=== PATIENT | female | born 1970 | race American Indian/Alaskan Native ===

== ENCOUNTER 2016-12-30 13:56 | Inpatient (IN) | payer MEDICARE ==
[2016-12-30] MEDS ORDERED: TYLENOL PO PRN ×2 (14:39→21:25)
[2016-12-30] MEDS ORDERED: MILK OF MAGNESIA PO PRN (14:39)
[2016-12-30] MEDS ORDERED: ZOFRAN IV PRN ×2 (14:39→21:25)
[2016-12-30] MEDS ORDERED: DULCOLAX PR PRN ×2 (14:39→21:25)
--- NOTE | 2016-12-30 14:49 | Consultation ---
History of Present Illness Reason for consult: dyspnea, cough, asthma, other (pleuritic chest pain) History of present illness: This is a patient with hx of asthma who recently had back surgery in September and was sent to rehab and flew back home in November. She began having chest pain on rt associated with spasm. She was seen in the office and started on cefdinir which she had an allergic reaction to with facial swelling. She was then treated with zpak with some but not significant improvement. She reports that the pain is now pleuritic and associated with spasm. She was ambulated in office and had evidence of wheezing and desaturation to 88 %. She recd a neb treatment with some but not signif improvement Past History Past Medical History: arthritis, other (asthma, chronic pain) Past Surgical History: Other (back surgery) Medications and Allergies Allergies Allergy/AdvReac Type Severity Reaction Status Date / Time Penicillins Allergy Hives Unverified 12/04/13 09:58 cefdinir AdvReac Unknown Verified 12/30/16 14:00 Active Meds: Active Medications Acetaminophen (Tylenol) 650 mg PO Q4H PRN PRN Reason: Pain MILD(1-3)/Fever >100.5/RICK Acetaminophen/Hydrocodone Bitart ([place] 5/325) 1 each PO Q6H PRN PRN Reason: Pain, Moderate (4-6) Albuterol (Proventil) 2.5 mg IH Q6HRT PRN PRN Reason: Bronchospasm Arformoterol Tartrate (Brovana Nebu) 15 mcg IH Q12HRT RICKEY Bisacodyl (Dulcolax) 10 mg ID QDAY PRN PRN Reason: Constipation unrelieved by MOM Budesonide (Pulmicort) 0.25 mg IH ONCE ONE Stop: 12/30/16 14:37 Budesonide (Pulmicort) 0.5 mg IH Q12HRT RICKEY Docusate Sodium (Colace) 100 mg PO BID RICKEY Fluticasone Propionate (Flonase) 100 mcg NS ONCE ONE Stop: 12/30/16 14:47 Heparin Sodium (Porcine) (Heparin) 5,000 unit SUB-Q Q8HR RICKEY Levofloxacin/Dextrose (Levaquin 500mg/100ml) 500 mg in 100 mls @ 100 mls/hr IV Q24HR RICKEY PRN Reason: Protocol Sodium Chloride (Nacl 0.9% 1000 Ml) 1,000 mls @ 75 mls/hr IV DIRECT RICKEY Magnesium Hydroxide (Milk Of Magnesia) 30 ml PO Q4H PRN PRN Reason: Constipation Methylprednisolone Sodium Succinate (Solu-Medrol) 40 mg IV Q6HR RICKEY Ondansetron HCl (Zofran) 4 mg IV Q8H PRN PRN Reason: N/V unrelieved by Reglan Pantoprazole Sodium (Protonix) 40 mg PO ONCE ONE Stop: 12/30/16 14:30 Physical Examination Vital signs: vital signs 130/70, 106, 28 99.0 General appearance: other (mild distress) ENT: oropharynx moist, other (no stridor) Neck: supple, no lymphadenopathy Effort: mildly labored Ascultation: Bilateral: wheezes Percussion: Bilateral: not dull Tactile fremitus: Bilateral: normal Cardiovascular: regular rate and rhythm Gastrointestinal: normoactive bowel sounds, soft, non-tender, non-distended Integumentary: normal Extremities: no cyanosis, edema (mild in LE) Musculoskeletal: no deformities Gait: normal gait, normal posture normal mental status, non-focal exam mood appropriate, affect normal Assessment and Plan - Patient Problems (1) Acute respiratory failure with hypoxemia Status: Acute (2) Pleuritic chest pain Status: Acute (3) Asthma exacerbation Status: Acute (4) Acute bronchitis Status: Acute Qualifiers: Bronchitis organism: B (5) Shortness of breath Status: Acute (6) Wheezing Status: Acute
[2016-12-30] MEDS ORDERED: PROVENTIL IH PRN (20:00)
[2016-12-30 21:04] LABS: Basophils % (Auto) 0.2 % (0.0-1.8); Eosinophils % (Auto) 0.3 % (0.0-4.3); Hematocrit 37.8 % (30.3-42.9); Hemoglobin 12.2 gm/dl (10.1-14.3); Mean Corpuscular HGB Conc 32 % (30-34); Mean Corpuscular Hemoglobin 31 pg (28-32); Mean Corpuscular Volume 95 fl (79-97); Platelet Count 324 K/mm3 (140-440); Red Blood Count 3.99 M/mm3 (3.65-5.03); Red Cell Distribution Width 14.7 % (13.2-15.2); White Blood Count 11.7 K/mm3 (4.5-11.0)
[2016-12-30 21:10] LABS: Alanine Aminotransferase 15 units/L (7-56); Albumin 3.8 g/dL (3.9-5); Albumin/Globulin Ratio 1.1 %; Alkaline Phosphatase 66 units/L (35-129); Anion Gap 21 mmol/L; BUN/Creatinine Ratio 17.14; Bilirubin,Total < 0.20 mg/dL (0.1-1.2); Blood Urea Nitrogen 12 mg/dL (7-17); Carbon Dioxide 20 mmol/L (22-30); Chloride 103.7 mmol/L (98-107); Glucose 114 mg/dL (65-100); Potassium 3.4 mmol/L (3.6-5.0); Sodium 141 mmol/L (137-145); Total Protein 7.2 g/dL (6.3-8.2)
[2016-12-30 21:15] LABS: INR 1.06 (0.87-1.13)
--- NOTE | 2016-12-30 21:25 | History and Physical Report ---
History of Present Illness Date of examination: 12/30/16 Date of admission: 12/30/16 20:12 Chief complaint: Increasing SOB for 10 days History of present illness: 46 year old AAF with HX of Asthma not responding to Outpatient treatment.Sent from Dr Carr's office as a direct admit .Also to rule out PE bcoz of recent travel and chest pain rt side.Patient was desaturating on walking in Dr Carr' s office.No fever or chills.Cough productive of mucoid sputum. Past History Past Medical History: arthritis, other (asthma, chronic pain) Past Surgical History: Other (back surgery) Social history: no significant social history, lives with family Family history: hypertension Medications and Allergies Allergies Allergy/AdvReac Type Severity Reaction Status Date / Time Penicillins Allergy Hives Unverified 12/04/13 09:58 cefdinir AdvReac Unknown Verified 12/30/16 14:00 Home Medications Medication Instructions Recorded Confirmed Last Taken Type Percocet 5/325 mg 2 PO Q4-6H PRN 12/31/16 Unknown History Robaxin TAB 750 PO Q12HR 12/31/16 Unknown History Active Meds: Active Medications Acetaminophen (Tylenol) 650 mg PO Q4H PRN PRN Reason: Pain MILD(1-3)/Fever >100.5/RICK Acetaminophen/Hydrocodone Bitart ([place] 5/325) 1 each PO Q6H PRN PRN Reason: Pain, Moderate (4-6) Albuterol (Proventil) 2.5 mg IH Q6HRT PRN PRN Reason: Bronchospasm Arformoterol Tartrate (Brovana Nebu) 15 mcg IH Q12HRT RICKEY Bisacodyl (Dulcolax) 10 mg UT QDAY PRN PRN Reason: Constipation unrelieved by MOM Budesonide (Pulmicort) 0.25 mg IH ONCE ONE Stop: 12/30/16 14:37 Budesonide (Pulmicort) 0.5 mg IH Q12HRT RICKEY Docusate Sodium (Colace) 100 mg PO BID RICKEY Fluticasone Propionate (Flonase) 100 mcg NS ONCE ONE Stop: 12/30/16 14:47 Heparin Sodium (Porcine) (Heparin) 5,000 unit SUB-Q Q8HR RICKEY Levofloxacin/Dextrose (Levaquin 500mg/100ml) 500 mg in 100 mls @ 100 mls/hr IV Q24HR RICKEY PRN Reason: Protocol Sodium Chloride (Nacl 0.9% 1000 Ml) 1,000 mls @ 75 mls/hr IV DIRECT RICKEY Magnesium Hydroxide (Milk Of Magnesia) 30 ml PO Q4H PRN PRN Reason: Constipation Methylprednisolone Sodium Succinate (Solu-Medrol) 40 mg IV Q6HR RICKEY Ondansetron HCl (Zofran) 4 mg IV Q8H PRN PRN Reason: N/V unrelieved by Reglan Pantoprazole Sodium (Protonix) 40 mg PO ONCE ONE Stop: 12/30/16 14:30 Review of Systems All systems: negative Constitutional: no weight loss, no weight gain, no fever, no chills, no sweats, no night sweats Ears, nose, mouth and throat: no sore throat, no swelling in mouth, no swelling in throat, no odynophagia Breasts: deferred Cardiovascular: no chest pain, no orthopnea, no palpitations, no rapid/ irregular heart beat, no edema, no syncope Respiratory: cough, cough with sputum, shortness of breath, dyspnea on exertion , congestion Gastrointestinal: no abdominal pain, no nausea, no vomiting, no diarrhea, no constipation, no change in bowel habits, no hematemesis, no coffee ground emesis Musculoskeletal: no neck stiffness, no neck pain, no shooting arm pain, no arm numbness/tingling, no low back pain, no shooting leg pain, no leg numbness/ tingling, no redness of joints Integumentary: no rash, no pruritis, no redness, no sores, no wounds, no jaundice, no boils, no blisters Neurological: no tingling, no seizures, no syncope Psychiatric: no anxiety, no memory loss, no change in sleep habits, no sleep disturbances, no insomnia, no hypersomnia, no change in appetite, no change in libido Endocrine: no polyphagia, no excessive thirst, no polydipsia, no polyuria, no nocturia Hematologic/Lymphatic: no easy bruising, no easy bleeding Allergic/Immunologic: no urticaria, no allergic rhinitis Exam - Constitutional General appearance: Present: no acute distress, well-nourished - EENT Eyes: Present: PERRL ENT: hearing intact, clear oral mucosa - Neck Neck: Present: supple, normal ROM - Respiratory Respiratory effort: normal Respiratory: bilateral: diminished, rhonchi - Cardiovascular Heart rate: 80 Rhythm: regular Heart Sounds: Present: S1 & S2. Absent: rub, click - Extremities Extremities: no ischemia, pulses intact, pulses symmetrical, No edema Peripheral Pulses: within normal limits - Abdominal General gastrointestinal: Present: soft, non-tender, non-distended, normal bowel sounds Female genitourinary: Present: normal - Integumentary Integumentary: Present: clear, warm, dry - Musculoskeletal Musculoskeletal: gait normal, strength equal bilaterally - Psychiatric Psychiatric: appropriate mood/affect, intact judgment & insight - Neurologic Neurologic: CNII-XII intact, moves all extremities Results - Labs CBC & Chem 7: 12/30/16 20:38 12/31/16 06:04 Labs: Laboratory Last Values WBC 11.7 K/mm3 (4.5-11.0) H 12/30/16 20:38 RBC 3.99 M/mm3 (3.65-5.03) 12/30/16 20:38 Hgb 12.2 gm/dl (10.1-14.3) 12/30/16 20:38 Hct 37.8 % (30.3-42.9) 12/30/16 20:38 MCV 95 fl (79-97) 12/30/16 20:38 MCH 31 pg (28-32) 12/30/16 20:38 MCHC 32 % (30-34) 12/30/16 20:38 RDW 14.7 % (13.2-15.2) 12/30/16 20:38 Plt Count 324 K/mm3 (140-440) 12/30/16 20:38 Lymph % (Auto) 35.9 % (13.4-35.0) H 12/30/16 20:38 [place] % (Auto) 8.7 % (0.0-7.3) H 12/30/16 20:38 Eos % (Auto) 0.3 % (0.0-4.3) 12/30/16 20:38 Baso % (Auto) 0.2 % (0.0-1.8) 12/30/16 20:38 Lymph # 4.2 K/mm3 (1.2-5.4) 12/30/16 20:38 [place] # 1.0 K/mm3 (0.0-0.8) H 12/30/16 20:38 Eos # 0.0 K/mm3 (0.0-0.4) 12/30/16 20:38 Baso # 0.0 K/mm3 (0.0-0.1) 12/30/16 20:38 Seg Neutrophils % 54.9 % (40.0-70.0) 12/30/16 20:38 Seg Neutrophils # 6.4 K/mm3 (1.8-7.7) 12/30/16 20:38 PT 13.7 Sec. (12.2-14.9) 12/30/16 20:44 INR 1.06 (0.87-1.13) 12/30/16 20:44 APTT 23.0 Sec. (24.2-36.6) L 12/30/16 20:44 Sodium 141 mmol/L (137-145) 12/30/16 20:45 Potassium 3.4 mmol/L (3.6-5.0) L 12/30/16 20:45 Chloride 103.7 mmol/L (98-107) 12/30/16 20:45 Carbon Dioxide 20 mmol/L (22-30) L 12/30/16 20:45 Anion Gap 21 mmol/L 12/30/16 20:45 BUN 12 mg/dL (7-17) 12/30/16 20:45 Creatinine 0.7 mg/dL (0.7-1.2) 12/30/16 20:45 Estimated GFR > 60 ml/min 12/30/16 20:45 BUN/Creatinine Ratio 17.14 % 12/30/16 20:45 Glucose 114 mg/dL (65-100) H 12/30/16 20:45 Calcium 9.0 mg/dL (8.4-10.2) 12/30/16 20:45 Total Bilirubin < 0.20 mg/dL (0.1-1.2) 12/30/16 20:45 AST 11 units/L (5-40) 12/30/16 20:45 ALT 15 units/L (7-56) 12/30/16 20:45 Alkaline Phosphatase 66 units/L (35-129) 12/30/16 20:45 Total Protein 7.2 g/dL (6.3-8.2) 12/30/16 20:45 Albumin 3.8 g/dL (3.9-5) L 12/30/16 20:45 Albumin/Globulin Ratio 1.1 % 12/30/16 20:45 - Imaging and Cardiology Chest x-ray: report reviewed CT scan - abdomen: report reviewed Assessment and Plan Advance Directives: Yes (full code) Plan of care discussed with patient/family: Yes - Patient Problems (1) Acute respiratory failure with hypoxemia Current Visit: Yes Status: Acute Plan to address problem: Neb Tx iv Solumedrol and Iv abx (2) Asthma exacerbation Current Visit: Yes Status: Acute Plan to address problem: Same as above Pulmonary ebolism is a considertion b/c of recent surgery and travel Check CTA (3) Arthritis Current Visit: Yes Status: Chronic (4) Low back pain associated with a spinal disorder other than radiculopathy or spinal stenosis Current Visit: Yes Status: Chronic Plan to address problem: Patient had recent back surgery and requesting for Pain medications (5) DVT prophylaxis Current Visit: Yes Status: Acute Plan to address problem: On Lovenox 40 mg SQ qd
[2016-12-30] MEDS: BROVANA NEBU IH SCH (21:35)
[2016-12-30] MEDS: PULMICORT IH SCH (21:36)
[2016-12-30] MEDS ORDERED: PROTONIX PO ONE (22:00)
[2016-12-30] MEDS ORDERED: ELAVIL PO SCH (22:00)
[2016-12-30] MEDS ORDERED: PULMICORT IH ONE (23:00)
[2016-12-30] MEDS ORDERED: FLONASE NS ONE (23:00)
[2016-12-30] MEDS: NACL 0.9% 1000 ML 1,000 ML IV SCH (23:17)
[2016-12-30] MEDS: LEVAQUIN 500MG/100ML 500 MG/100 ML BAG IV SCH (23:17)
[2016-12-30] MEDS: COLACE PO SCH (23:18)
[2016-12-30] MEDS: NORCO 5/325 PO PRN (23:18)
[2016-12-30] MEDS: HEPARIN SUB-Q SCH (23:19)
[2016-12-31] MEDS: MORPHINE IV PRN ×4 (01:51→21:49)
[2016-12-31] MEDS: HEPARIN SUB-Q SCH (06:27)
[2016-12-31 07:14] LABS: Anion Gap 18 mmol/L; BUN/Creatinine Ratio 18.33; Blood Urea Nitrogen 11 mg/dL (7-17); Calcium 8.7 mg/dL (8.4-10.2); Carbon Dioxide 21 mmol/L (22-30); Glucose 160 mg/dL (65-100); Potassium 4.4 mmol/L (3.6-5.0); Sodium 139 mmol/L (137-145)
[2016-12-31] MEDS: BROVANA NEBU IH SCH ×2 (08:22→20:14)
[2016-12-31] MEDS: PULMICORT IH SCH ×2 (08:22→20:14)
--- NOTE | 2016-12-31 09:19 | XRay Report ---
Single view chest: History: Asthma exacerbation. Findings: Normal cardiomediastinal silhouette. Trachea is midline. As specificity is left perihilar area. Normal CP angles. Impression: Opacity left perihilar area probably suggestive of pneumonitis.
--- NOTE | 2016-12-31 11:20 | Progress Note ---
Assessment and Plan Dyspnea. Appear to be in part related to prior history of asthma. Currently on further workup for thrombotic event with no prior history of malignancy or thrombotic events reported by patient Left lung pneumonia. This per chest x-ray report on admission. Hypoxemia. Secondary to the above Obstructive sleep apnea. CPAP at bedside complaints last night. Back pain. History recent spine surgery Obesity Recommendations Chest CTA Continue oxygen support if oxygen desaturations noted below 90% Continue antibiotics for pneumonia Subjective Date of service: 12/31/16 Principal diagnosis: dyspnea, asthma exacerbation, hypoxemia, recent back surgery Interval history: Complaints of coughing and sore throat and some throat congestion. Also persists with back pain needing pain medications. She denies hemoptysis episodes. Currently no chest pain. No fever or chills reported. She is about to be moved to chest CTA this morning Objective Vital Signs - 12hr 12/30/16 12/31/16 12/31/16 23:18 00:45 01:51 Temperature Pulse Rate 86 Pulse Rate [ Anterior Bilateral Throughout] Respiratory 20 20 20 Rate Respiratory Rate [Anterior Bilateral Throughout] Blood Pressure O2 Sat by Pulse 100 Oximetry 12/31/16 12/31/16 12/31/16 02:21 07:57 08:20 Temperature 97.8 F Pulse Rate 64 Pulse Rate [ 64 Anterior Bilateral Throughout] Respiratory 18 22 Rate Respiratory 18 Rate [Anterior Bilateral Throughout] Blood Pressure 110/80 O2 Sat by Pulse 99 Oximetry 12/31/16 08:30 Temperature Pulse Rate Pulse Rate [ 65 Anterior Bilateral Throughout] Respiratory Rate Respiratory 18 Rate [Anterior Bilateral Throughout] Blood Pressure O2 Sat by Pulse Oximetry Constitutional: no acute distress, alert, appears uncomfortable ENT: oropharynx moist, other (no stridor) Neck: supple, no lymphadenopathy Effort: mildly labored Ascultation: Bilateral: clear, diminished breath sounds, rhonchi (sporadic) Percussion: Bilateral: not dull Tactile fremitus: Bilateral: normal Cardiovascular: regular rate and rhythm Gastrointestinal: normoactive bowel sounds, soft, non-tender, non-distended Integumentary: normal Extremities: no cyanosis Neurologic: normal mental status, non-focal exam Psychiatric: mood appropriate, affect normal CBC and BMP: 12/30/16 20:38 12/31/16 06:04 ABG, PT/INR, D-dimer: PT/INR, D-dimer PT 13.7 Sec. (12.2-14.9) 12/30/16 20:44 INR 1.06 (0.87-1.13) 12/30/16 20:44 Abnormal lab findings: Abnormal Labs 12/30/16 12/30/16 12/30/16 20:38 20:44 20:45 WBC 11.7 H Lymph % (Auto) 35.9 H [place] % (Auto) 8.7 H [place] # 1.0 H APTT 23.0 L Potassium 3.4 L Carbon Dioxide 20 L Creatinine Glucose 114 H POC Glucose Albumin 3.8 L 12/31/16 12/31/16 12/31/16 02:03 05:11 06:04 WBC Lymph % (Auto) [place] % (Auto) [place] # APTT Potassium Carbon Dioxide 21 L Creatinine 0.6 L Glucose 160 H POC Glucose 138 H 156 H Albumin
[2016-12-31] MEDS ORDERED: NACL ONE (12:20)
--- NOTE | 2016-12-31 13:19 | Cat Scan Report ---
CTA chest: History: Pleuritic chest pain. Findings: No evidence of aneurysm. Filling defects are identified at the distal right main pulmonary artery and adjacent branches. There is filling defect noted at the distal left pulmonary artery near the branches. There is 3.9 x 2.5 cm mass in the left lower lobe without air bronchogram/maybe calcified partially. Appears to be pleural-based. There is left calcified hilar mass probably related adenopathy. Faint pleural-based infiltrates right lower lobe. Impression: Pulmonary embolism as detailed above. Left lung mass with left hilar adenopathy. Additional findings as detailed above. Nurse Bunny HERNANDEZ was informed of the findings at 1:10 PM on 12/31/16. Pedro Luis
[2016-12-31] MEDS: HEPARIN/ 0.45% NACL-25,000 UNIT/500 ML 25,000 UNIT/500 ML BAG IV SCH (13:56)
[2016-12-31 14:20] LABS: Hemoglobin 12.8 gm/dl (10.1-14.3)
[2016-12-31 14:32] LABS: INR 1.08 (0.87-1.13); Partial Thromboplastin Time 24.8 Sec. (24.2-36.6)
[2016-12-31] MEDS: COLACE PO SCH ×2 (15:09→21:49)
[2016-12-31] MEDS: NACL 0.9% 1000 ML 1,000 ML IV SCH (16:59)
[2016-12-31] MEDS: LEVAQUIN 500MG/100ML 500 MG/100 ML BAG IV SCH (16:59)
[2017-01-01] MEDS: MORPHINE IV PRN ×3 (06:53→22:31)
[2017-01-01] MEDS: HEPARIN/ 0.45% NACL-25,000 UNIT/500 ML 25,000 UNIT/500 ML BAG IV SCH (07:07)
[2017-01-01] MEDS: NACL 0.9% 1000 ML 1,000 ML IV SCH (07:08)
--- NOTE | 2017-01-01 07:15 | Progress Note ---
Assessment and Plan Bilateral PE - started on iv heparin drip - will start on oral anticoagulation if no active bleeding in next 24h left LL lung mass - will follow pulmonary recommendation Acute respiratory failure with hypoxemia likely from acute PE and exacerbation of asthma Neb Tx iv Solumedrol and breathing tx Asthma exacerbation - cont periodic nebulizer breathing treatment along with O2 Low back pain associated with a spinal disorder other than radiculopathy or spinal stenosis Patient had recent back surgery will manage with as needed pain medication DVT prophylaxis On heparin drip Subjective Date of service: 12/31/16 Principal diagnosis: dyspnea, asthma exacerbation, hypoxemia, recent back surgery Interval history: Patient seen and examined. Medical records and medication list reviewed. No acute event overnight noted by the RN. Patient complains of pleuritic chest pain and difficulty breathing. Patient is tolerating diet. CTA chest suggestive of bilateral pulmonary embolism and left lower lobe calcified pleural-based mass Discussed plan of care at bedside with patient. Objective - Exam Narrative Exam: GENERAL: well-developed and well-nourished -Filipino female lying on bed appeared to be in no discomfort. HEENT: Normocephalic. Atraumatic. No conjunctival congestion or icterus. Patient has moist mucous membranes. NECK: Supple. Trachea midline. CHEST/LUNGS: breathing nonlabored. No wheezes crackles or rhonchi. HEART/CARDIOVASCULAR: Regular in rate and rhythm. S1 and S2 positive. ABDOMEN: Abdomen is soft, nontender. Patient has normal bowel sounds. SKIN: There is no rash. Warm and dry. NEURO: No focal motor deficit. Follows command. MUSCULOSKELETAL: No joint effusion or tenderness. EXTRIMITY: No edema, no cyanosis or clubbing. PSYCH: Cooperative. - Constitutional Vitals: Vital Signs - 12hr 12/31/16 12/31/16 12/31/16 20:05 20:17 20:21 Temperature Pulse Rate Pulse Rate [ 77 83 Anterior Bilateral Throughout] Respiratory Rate Respiratory 16 18 Rate [Anterior Bilateral Throughout] Blood Pressure O2 Sat by Pulse 95 Oximetry 12/31/16 12/31/16 12/31/16 21:49 22:19 23:25 Temperature 99.5 F Pulse Rate 73 Pulse Rate [ Anterior Bilateral Throughout] Respiratory 18 17 20 Rate Respiratory Rate [Anterior Bilateral Throughout] Blood Pressure 108/58 O2 Sat by Pulse 99 Oximetry 01/01/17 01/01/17 00:45 06:53 Temperature Pulse Rate 65 Pulse Rate [ Anterior Bilateral Throughout] Respiratory 18 18 Rate Respiratory Rate [Anterior Bilateral Throughout] Blood Pressure O2 Sat by Pulse 93 Oximetry - Labs CBC & Chem 7: 12/31/16 13:43 12/31/16 06:04 Labs: Abnormal lab results 12/31/16 12/31/16 12/31/16 Range/Units 06:04 12:27 16:21 Heparin Anti-Xa Level (0.3-0.7) U.I./ml Carbon Dioxide 21 L (22-30) mmol/L Creatinine 0.6 L (0.7-1.2) mg/dL Glucose 160 H (65-100) mg/dL POC Glucose 140 H 166 H (70-105) 12/31/16 12/31/16 01/01/17 Range/Units 20:09 21:57 05:47 Heparin Anti-Xa Level 1.45 H (0.3-0.7) U.I./ml Carbon Dioxide (22-30) mmol/L Creatinine (0.7-1.2) mg/dL Glucose (65-100) mg/dL POC Glucose 118 H 146 H (70-105)
[2017-01-01] MEDS: PULMICORT IH SCH ×2 (09:37→20:10)
[2017-01-01] MEDS: BROVANA NEBU IH SCH ×2 (09:37→20:09)
[2017-01-01] MEDS: MILK OF MAGNESIA PO PRN ×2 (11:02→22:40)
[2017-01-01] MEDS: COLACE PO SCH ×2 (11:02→22:30)
--- NOTE | 2017-01-01 12:56 | Progress Note ---
Assessment and Plan PE. On hepain IV. Lung mass. See CT report . Will need further evaluation. Reports prior hx/o SPN? ?? Left lung pneumonia. Obstructive sleep apnea. CPAP at bedside complaints last night. Back pain. History recent spine surgery. No neurological changes Obesity Recommendations Continue standard anticoagulation,optimize INR Neurological monitoring Continue antibiotics for pneumonia Will need either TTNA or bronc later on, once anticoagulation stabilized Discussed with pt in detail all questions answered.No family at bedside Subjective Date of service: 01/01/17 Principal diagnosis: dyspnea, asthma exacerbation, hypoxemia, recent back surgery Interval history: Some cough and SOB.Anxious about clot issue.No bleeding or hemoptysis Objective Vital Signs - 12hr 01/01/17 01/01/17 01/01/17 06:53 07:23 08:00 Temperature 97.5 F L Pulse Rate 61 Pulse Rate [ Anterior Bilateral Throughout] Respiratory 18 17 22 Rate Respiratory Rate [Anterior Bilateral Throughout] Blood Pressure 128/82 O2 Sat by Pulse 98 Oximetry 01/01/17 01/01/17 09:37 09:47 Temperature Pulse Rate Pulse Rate [ 69 80 Anterior Bilateral Throughout] Respiratory Rate Respiratory 18 20 Rate [Anterior Bilateral Throughout] Blood Pressure O2 Sat by Pulse 99 Oximetry Constitutional: no acute distress, alert, appears uncomfortable ENT: oropharynx moist Neck: supple, no lymphadenopathy Effort: mildly labored Ascultation: Bilateral: clear Percussion: Bilateral: not dull Tactile fremitus: Bilateral: normal Cardiovascular: regular rate and rhythm Gastrointestinal: normoactive bowel sounds, soft, non-tender, non-distended Integumentary: normal Extremities: no cyanosis Neurologic: normal mental status, non-focal exam Psychiatric: mood appropriate, affect normal CBC and BMP: 12/31/16 13:43 12/31/16 06:04 ABG, PT/INR, D-dimer: PT/INR, D-dimer PT 13.9 Sec. (12.2-14.9) 12/31/16 13:43 INR 1.08 (0.87-1.13) 12/31/16 13:43 Abnormal lab findings: Abnormal Labs 12/30/16 12/30/16 12/30/16 20:38 20:44 20:45 WBC 11.7 H Lymph % (Auto) 35.9 H [place] % (Auto) 8.7 H [place] # 1.0 H APTT 23.0 L Heparin Anti-Xa Level Potassium 3.4 L Carbon Dioxide 20 L Creatinine Glucose 114 H POC Glucose Albumin 3.8 L 12/31/16 12/31/16 12/31/16 02:03 05:11 06:04 WBC Lymph % (Auto) [place] % (Auto) [place] # APTT Heparin Anti-Xa Level Potassium Carbon Dioxide 21 L Creatinine 0.6 L Glucose 160 H POC Glucose 138 H 156 H Albumin 12/31/16 12/31/16 12/31/16 12:27 16:21 20:09 WBC Lymph % (Auto) [place] % (Auto) [place] # APTT Heparin Anti-Xa Level 1.45 H Potassium Carbon Dioxide Creatinine Glucose POC Glucose 140 H 166 H Albumin 12/31/16 01/01/17 01/01/17 21:57 05:47 06:39 WBC Lymph % (Auto) [place] % (Auto) [place] # APTT Heparin Anti-Xa Level 1.19 H Potassium Carbon Dioxide Creatinine Glucose POC Glucose 118 H 146 H Albumin 01/01/17 12:06 WBC Lymph % (Auto) [place] % (Auto) [place] # APTT Heparin Anti-Xa Level Potassium Carbon Dioxide Creatinine Glucose POC Glucose 181 H Albumin
--- NOTE | 2017-01-01 13:27 | Progress Note ---
Assessment and Plan Bilateral PE - cont on iv heparin drip - will start on oral anticoagulation after possible lung biopsy for lung mass left LL lung mass - will follow pulmonary recommendation about biopsy planning Acute respiratory failure with hypoxemia likely from acute PE and exacerbation of asthma Neb Tx iv Solumedrol and breathing tx Asthma exacerbation - cont periodic nebulizer breathing treatment along with O2 Low back pain associated with a spinal disorder other than radiculopathy or spinal stenosis Patient had recent back surgery will manage with as needed pain medication DVT prophylaxis On heparin drip Subjective Date of service: 01/01/17 Principal diagnosis: dyspnea, asthma exacerbation, hypoxemia, recent back surgery Interval history: Patient seen and examined. Medical records and medication list reviewed. No acute event overnight noted by the RN. Patient complains of pleuritic chest pain and difficulty breathing. Patient is tolerating diet. CTA chest suggestive of bilateral pulmonary embolism and left lower lobe calcified pleural-based mass Discussed plan of care at bedside with patient. Objective - Exam Narrative Exam: GENERAL: well-developed and well-nourished -Maltese female lying on bed appeared to be in no discomfort. HEENT: Normocephalic. Atraumatic. No conjunctival congestion or icterus. Patient has moist mucous membranes. NECK: Supple. Trachea midline. CHEST/LUNGS: breathing nonlabored. No wheezes crackles or rhonchi. HEART/CARDIOVASCULAR: Regular in rate and rhythm. S1 and S2 positive. ABDOMEN: Abdomen is soft, nontender. Patient has normal bowel sounds. SKIN: There is no rash. Warm and dry. NEURO: No focal motor deficit. Follows command. MUSCULOSKELETAL: No joint effusion or tenderness. EXTRIMITY: No edema, no cyanosis or clubbing. PSYCH: Cooperative. - Constitutional Vitals: Vital Signs - 12hr 01/01/17 01/01/17 01/01/17 06:53 07:23 08:00 Temperature 97.5 F L Pulse Rate 61 Pulse Rate [ Anterior Bilateral Throughout] Respiratory 18 17 22 Rate Respiratory Rate [Anterior Bilateral Throughout] Blood Pressure 128/82 O2 Sat by Pulse 98 Oximetry 01/01/17 01/01/17 09:37 09:47 Temperature Pulse Rate Pulse Rate [ 69 80 Anterior Bilateral Throughout] Respiratory Rate Respiratory 18 20 Rate [Anterior Bilateral Throughout] Blood Pressure O2 Sat by Pulse 99 Oximetry - Labs CBC & Chem 7: 12/31/16 13:43 12/31/16 06:04 Labs: Abnormal lab results 12/31/16 12/31/16 12/31/16 Range/Units 16:21 20:09 21:57 Heparin Anti-Xa Level 1.45 H (0.3-0.7) U.I./ml POC Glucose 166 H 118 H (70-105) 01/01/17 01/01/17 01/01/17 Range/Units 05:47 06:39 12:06 Heparin Anti-Xa Level 1.19 H (0.3-0.7) U.I./ml POC Glucose 146 H 181 H (70-105)
[2017-01-01] MEDS: LEVAQUIN PO SCH (22:30)
--- NOTE | 2017-01-02 01:09 | Admit Criteria Form ---
Admission Criteria Documentation: RESPIRATORY FAILURE GRG Clinical Indications for Admission to Inpatient Care (Place 'X' for any and all applicable criteria): Hospital admission is needed for appropriate care of the patient because of acute respiratory failure or insufficiency as indicated by 1 or more of the following (1)(2)(3)(4)(5)(6)(7)(8 ): [X]I. Mechanical ventilation needed (acute invasive or noninvasive) [ ]II. Severe ventilation deficit as indicated by 1 or more of the following ( 9) [ ]a) Uncompensated Respiratory acidosis (pH < 7.35 and PaCO2 > 40 mmHg (5.3 kPa)) [ ]b) Airflow measurements < 25% of predicted (eg, PEFR < 100 L/min) [ ]c) FVC < 15 mL/kg of ideal body weight, or 50% decrease in vital capacity from baseline [ ]III. Noncardiac pulmonary edema not resolving with rapid emergency treatment (8) [ ]IV. Severe respiratory distress as indicated by 1 or more of the following: [ ]a) Severe tachypnea (respiratory rate greater than 30, greater than 45 for 6-month-old, greater than 60 for ) [ ]b) Severe hypoxemia (partial pressure of oxygen less than 50 mm Hg ( 6.7 kPa) on greater than 50% oxygen or partial pressure of oxygen to FIO2 ratio less than 200) [ ]c) Mental status deterioration from respiratory disease [ ]V. Airway obstruction or inadequate protection [A](10)(11) The original [employer] content created by [employer] has been revised. The portions of the content which have been revised are identified through the use of italic text or in bold, and [employer] has neither reviewed nor approved the modified material. All other unmodified content is copyright [employer]. Please see references footnoted in the original [employer] edition 2017 Admission Criteria Met: Yes
[2017-01-02 02:06] LABS: Hematocrit 35.1 % (30.3-42.9); Hemoglobin 11.4 gm/dl (10.1-14.3); Mean Corpuscular HGB Conc 33 % (30-34); Mean Corpuscular Hemoglobin 31 pg (28-32); Mean Corpuscular Volume 94 fl (79-97); Platelet Count 297 K/mm3 (140-440); Red Blood Count 3.72 M/mm3 (3.65-5.03); Red Cell Distribution Width 14.9 % (13.2-15.2); White Blood Count 20.1 K/mm3 (4.5-11.0)
--- NOTE | 2017-01-02 07:38 | Vascular Lab Report ---
LOWER EXTREMITY VENOUS DUPLEX: REASON FOR EXAM: Swelling of the lower extremities. COMMENTS ON THE RIGHT: All veins visualized are freely compressible without evidence of internal echogenicity. Flow is spontaneous and phasic throughout. COMMENTS ON THE LEFT: All veins visualized are freely compressible without evidence of internal echogenicity. Flow is spontaneous and phasic throughout. IMPRESSION: No evidence of acute or chronic deep venous thrombosis in either lower extremity.
[2017-01-02] MEDS: MORPHINE IV PRN ×2 (07:58→13:40)
[2017-01-02 08:13] LABS: Hematocrit 36.1 % (30.3-42.9); Hemoglobin 11.5 gm/dl (10.1-14.3)
[2017-01-02] MEDS: MILK OF MAGNESIA PO PRN (08:13)
[2017-01-02] MEDS: PULMICORT IH SCH ×3 (08:56→21:37)
[2017-01-02] MEDS: BROVANA NEBU IH SCH ×3 (08:56→21:36)
[2017-01-02] MEDS: COLACE PO SCH ×2 (09:41→21:18)
[2017-01-02] MEDS: NACL 0.9% 1000 ML 1,000 ML IV SCH (11:23)
[2017-01-02] MEDS: HEPARIN/ 0.45% NACL-25,000 UNIT/500 ML 25,000 UNIT/500 ML BAG IV SCH (11:27)
--- NOTE | 2017-01-02 13:56 | Progress Note ---
Assessment and Plan 46 y/o female with PE and left lower lobe mass 1. Will review office records. Per patient has had biopsy in the past. Do not know results. 2. Would continue IV heparin until I can review records. may need biopsy prior to discharge 3. Consider decreasing pain meds 4. Continue IV steroids, will halve dose tomorrow 5. Consider stopping abx therapy. Subjective Date of service: 01/02/17 Principal diagnosis: dyspnea, asthma exacerbation, hypoxemia, recent back surgery Interval history: Remains on room air. Stable. States that she does get short of breath with exertion. Currently on Heparin. No family at bedside. Remainder is negative. Objective Vital Signs - 12hr 01/02/17 01/02/17 01/02/17 08:00 10:29 10:32 Temperature 98.3 F Pulse Rate 68 Pulse Rate [ 74 Posterior Bilateral Throughout] Respiratory 18 Rate Respiratory 18 Rate [Posterior Bilateral Throughout] Blood Pressure 102/62 O2 Sat by Pulse 96 100 Oximetry 01/02/17 10:44 Temperature Pulse Rate Pulse Rate [ 72 Posterior Bilateral Throughout] Respiratory Rate Respiratory 18 Rate [Posterior Bilateral Throughout] Blood Pressure O2 Sat by Pulse Oximetry Constitutional: no acute distress, alert, appears uncomfortable ENT: oropharynx moist Neck: supple, no lymphadenopathy Effort: mildly labored Ascultation: Bilateral: clear, diminished breath sounds Percussion: Bilateral: not dull Tactile fremitus: Bilateral: normal Cardiovascular: regular rate and rhythm Gastrointestinal: normoactive bowel sounds, soft, non-tender, non-distended Integumentary: normal Extremities: no cyanosis Neurologic: normal mental status, non-focal exam Psychiatric: mood appropriate, affect normal CBC and BMP: 01/02/17 07:54 12/31/16 06:04 ABG, PT/INR, D-dimer: PT/INR, D-dimer PT 13.9 Sec. (12.2-14.9) 12/31/16 13:43 INR 1.08 (0.87-1.13) 12/31/16 13:43 Abnormal lab findings: Abnormal Labs 12/30/16 12/30/16 12/30/16 20:38 20:44 20:45 WBC 11.7 H Lymph % (Auto) 35.9 H [place] % (Auto) 8.7 H [place] # 1.0 H APTT 23.0 L Heparin Anti-Xa Level Potassium 3.4 L Carbon Dioxide 20 L Creatinine Glucose 114 H POC Glucose Albumin 3.8 L 12/31/16 12/31/16 12/31/16 02:03 05:11 06:04 WBC Lymph % (Auto) [place] % (Auto) [place] # APTT Heparin Anti-Xa Level Potassium Carbon Dioxide 21 L Creatinine 0.6 L Glucose 160 H POC Glucose 138 H 156 H Albumin 12/31/16 12/31/16 12/31/16 12:27 16:21 20:09 WBC Lymph % (Auto) [place] % (Auto) [place] # APTT Heparin Anti-Xa Level 1.45 H Potassium Carbon Dioxide Creatinine Glucose POC Glucose 140 H 166 H Albumin 12/31/16 01/01/17 01/01/17 21:57 05:47 06:39 WBC Lymph % (Auto) [place] % (Auto) [place] # APTT Heparin Anti-Xa Level 1.19 H Potassium Carbon Dioxide Creatinine Glucose POC Glucose 118 H 146 H Albumin 01/01/17 01/01/17 01/01/17 12:06 17:14 21:24 WBC Lymph % (Auto) [place] % (Auto) [place] # APTT Heparin Anti-Xa Level Potassium Carbon Dioxide Creatinine Glucose POC Glucose 181 H 168 H 182 H Albumin 01/02/17 01/02/17 01/02/17 01:20 06:38 12:33 WBC 20.1 H Lymph % (Auto) [place] % (Auto) [place] # APTT Heparin Anti-Xa Level Potassium Carbon Dioxide Creatinine Glucose POC Glucose 144 H 209 H Albumin
[2017-01-02] MEDS ORDERED: MORPHINE IV PRN (17:36)
--- NOTE | 2017-01-02 17:43 | Progress Note ---
Assessment and Plan Bilateral PE - cont on iv heparin drip - will start on oral anticoagulation after possible lung biopsy for lung mass left LL lung mass - will follow pulmonary recommendation about biopsy planning - Per patient has had biopsy in the past but do not know results. - waiting on pt's office record from her rn charge Acute respiratory failure with hypoxemia - likely from acute PE and exacerbation of asthma - Neb Tx iv Solumedrol and breathing tx Asthma exacerbation - cont periodic nebulizer breathing treatment along with O2 Low back pain associated with a spinal disorder other than radiculopathy or spinal stenosis - Patient had recent back surgery - will manage with as needed pain medication Steroid induced hyperglycemia - will reduce the dose of steroid - will place on SSI Leukocytosis - steroid induced - will cont to monitor DVT prophylaxis - On heparin drip Subjective Date of service: 01/02/17 Principal diagnosis: dyspnea, asthma exacerbation, hypoxemia, recent back surgery Interval history: Patient seen and examined. Medical records and medication list reviewed. No acute event overnight noted by the RN. Patient complains of pleuritic chest pain and difficulty breathing, but improving. Patient is tolerating diet. CTA chest suggestive of bilateral pulmonary embolism and left lower lobe calcified pleural-based mass Discussed plan of care at bedside with patient. Objective - Exam Narrative Exam: GENERAL: well-developed and well-nourished -[place] female lying on bed appeared to be in no discomfort. HEENT: Normocephalic. Atraumatic. No conjunctival congestion or icterus. Patient has moist mucous membranes. NECK: Supple. Trachea midline. CHEST/LUNGS: breathing nonlabored. No wheezes crackles or rhonchi. HEART/CARDIOVASCULAR: Regular in rate and rhythm. S1 and S2 positive. ABDOMEN: Abdomen is soft, nontender. Patient has normal bowel sounds. SKIN: There is no rash. Warm and dry. NEURO: No focal motor deficit. Follows command. MUSCULOSKELETAL: No joint effusion or tenderness. EXTRIMITY: No edema, no cyanosis or clubbing. PSYCH: Cooperative. - Constitutional Vitals: Vital Signs - 12hr 01/02/17 01/02/17 01/02/17 08:00 10:29 10:32 Temperature 98.3 F Pulse Rate 68 Pulse Rate [ 74 Posterior Bilateral Throughout] Respiratory 18 Rate Respiratory 18 Rate [Posterior Bilateral Throughout] Blood Pressure 102/62 O2 Sat by Pulse 96 100 Oximetry 01/02/17 01/02/17 10:44 15:51 Temperature 97.9 F Pulse Rate 56 L Pulse Rate [ 72 Posterior Bilateral Throughout] Respiratory 18 Rate Respiratory 18 Rate [Posterior Bilateral Throughout] Blood Pressure 110/68 O2 Sat by Pulse Oximetry - Labs CBC & Chem 7: 01/02/17 07:54 12/31/16 06:04 Labs: Abnormal lab results 01/01/17 01/02/17 01/02/17 Range/Units 21:24 01:20 06:38 WBC 20.1 H (4.5-11.0) K/mm3 POC Glucose 182 H 144 H (70-105) 01/02/17 01/02/17 Range/Units 12:33 16:37 WBC (4.5-11.0) K/mm3 POC Glucose 209 H 223 H (70-105) - Imaging and cardiology CT scan - chest: report reviewed
[2017-01-02] MEDS: NORCO 5/325 PO PRN (21:18)
[2017-01-02] MEDS: LEVAQUIN PO SCH (21:18)
[2017-01-03] MEDS: NACL 0.9% 1000 ML 1,000 ML IV SCH ×2 (01:13→20:32)
[2017-01-03] MEDS ORDERED: MORPHINE IV PRN (06:33)
[2017-01-03 06:54] LABS: Anion Gap 18 mmol/L; Blood Urea Nitrogen 11 mg/dL (7-17); Calcium 8.6 mg/dL (8.4-10.2); Carbon Dioxide 21 mmol/L (22-30); Chloride 106.5 mmol/L (98-107); Glucose 143 mg/dL (65-100); Potassium 4.6 mmol/L (3.6-5.0); Sodium 141 mmol/L (137-145)
[2017-01-03] MEDS: PULMICORT IH SCH ×2 (07:33→21:12)
[2017-01-03] MEDS: BROVANA NEBU IH SCH ×2 (07:33→21:12)
[2017-01-03] MEDS: COLACE PO SCH ×2 (09:21→21:43)
[2017-01-03] MEDS: MILK OF MAGNESIA PO PRN (09:53)
--- NOTE | 2017-01-03 12:27 | Progress Note ---
Assessment and Plan 46 y/o female with PE and left lower lobe mass 1. Reviewed old records and films. Most recent CT prior to several days ago was 14. Does not appear to have changed. Stable. No need for biopsy at this point. Spoke with [facility], would figure out what insurance covers and start patient on oral anticoagulation 2. Continue home medication regimen for asthma at discharge: . 3. Will need steroid taper at discharge. 40x3, 20x3, 10x3 then stop 4. Needs heme consult for hypercoag work up and outpatient follow up to help determine duration of therapy. Subjective Date of service: 01/03/17 Principal diagnosis: dyspnea, asthma exacerbation, hypoxemia, recent back surgery Interval history: Feels better today. Spoke with Dr. Carr on the phone this am and I spoke with her yesterday at the office. Objective Vital Signs - 12hr 01/03/17 01/03/17 01/03/17 00:35 01:20 06:41 Temperature Pulse Rate 56 L 59 L Pulse Rate [ Posterior Bilateral Throughout] Respiratory 18 18 20 Rate Respiratory Rate [Posterior Bilateral Throughout] Blood Pressure O2 Sat by Pulse 98 97 Oximetry 01/03/17 01/03/17 01/03/17 07:35 07:41 08:11 Temperature 98.3 F Pulse Rate 56 L Pulse Rate [ 66 64 Posterior Bilateral Throughout] Respiratory 18 Rate Respiratory 18 18 Rate [Posterior Bilateral Throughout] Blood Pressure 114/72 O2 Sat by Pulse 96 98 Oximetry Constitutional: no acute distress, alert, appears uncomfortable ENT: oropharynx moist Neck: supple, no lymphadenopathy Effort: mildly labored Ascultation: Bilateral: clear, diminished breath sounds Percussion: Bilateral: not dull Tactile fremitus: Bilateral: normal Cardiovascular: regular rate and rhythm Gastrointestinal: normoactive bowel sounds, soft, non-tender, non-distended Integumentary: normal Extremities: no cyanosis Neurologic: normal mental status, non-focal exam Psychiatric: mood appropriate, affect normal CBC and BMP: 01/02/17 07:54 01/03/17 06:09 ABG, PT/INR, D-dimer: PT/INR, D-dimer PT 13.9 Sec. (12.2-14.9) 12/31/16 13:43 INR 1.08 (0.87-1.13) 12/31/16 13:43 Abnormal lab findings: Abnormal Labs 12/30/16 12/30/16 12/30/16 20:38 20:44 20:45 WBC 11.7 H Lymph % (Auto) 35.9 H [place] % (Auto) 8.7 H [place] # 1.0 H APTT 23.0 L Heparin Anti-Xa Level Potassium 3.4 L Carbon Dioxide 20 L Creatinine Glucose 114 H POC Glucose Albumin 3.8 L 12/31/16 12/31/16 12/31/16 02:03 05:11 06:04 WBC Lymph % (Auto) [place] % (Auto) [place] # APTT Heparin Anti-Xa Level Potassium Carbon Dioxide 21 L Creatinine 0.6 L Glucose 160 H POC Glucose 138 H 156 H Albumin 12/31/16 12/31/16 12/31/16 12:27 16:21 20:09 WBC Lymph % (Auto) [place] % (Auto) [place] # APTT Heparin Anti-Xa Level 1.45 H Potassium Carbon Dioxide Creatinine Glucose POC Glucose 140 H 166 H Albumin 12/31/16 01/01/17 01/01/17 21:57 05:47 06:39 WBC Lymph % (Auto) [place] % (Auto) [place] # APTT Heparin Anti-Xa Level 1.19 H Potassium Carbon Dioxide Creatinine Glucose POC Glucose 118 H 146 H Albumin 01/01/17 01/01/17 01/01/17 12:06 17:14 21:24 WBC Lymph % (Auto) [place] % (Auto) [place] # APTT Heparin Anti-Xa Level Potassium Carbon Dioxide Creatinine Glucose POC Glucose 181 H 168 H 182 H Albumin 01/02/17 01/02/17 01/02/17 01:20 06:38 12:33 WBC 20.1 H Lymph % (Auto) [place] % (Auto) [place] # APTT Heparin Anti-Xa Level Potassium Carbon Dioxide Creatinine Glucose POC Glucose 144 H 209 H Albumin 01/02/17 01/02/17 01/03/17 16:37 21:25 05:40 WBC Lymph % (Auto) [place] % (Auto) [place] # APTT Heparin Anti-Xa Level Potassium Carbon Dioxide Creatinine Glucose POC Glucose 223 H 165 H 134 H Albumin 01/03/17 01/03/17 06:09 11:32 WBC Lymph % (Auto) [place] % (Auto) [place] # APTT Heparin Anti-Xa Level Potassium Carbon Dioxide 21 L Creatinine 0.5 L Glucose 143 H POC Glucose 116 H Albumin
--- NOTE | 2017-01-03 13:53 | Query- Pneumonia Documented ---
Dear ___Douglas Date:__01/03/2017 Gate Person/CDS:___Mallorie Phone#:____[phone] Exercise your independent professional judgment when responding to query. Questions asked do not imply a particular answer is desired or expected. We greatly appreciate your clarification on this issue. Clinical Documentation States: 46 Year old female was admitted on 12/30/2016. The Hospitalist H&P note states "46 year old AAF with HX of Asthma not responding to Outpatient treatment.Sent from Dr Carr's office as a direct admit .Also to rule out PE bcoz of recent travel and chest pain rt side.Patient was desaturating on walking in Dr Carr's office.No fever or chills.Cough productive of mucoid sputum." Th IM Progress note on 12/31/2016 states "Will also continue abx for Right LL PNA likely community acquired." Clinical Findings Show: Antibiotics: IV Levaquin. Chest Imaging on 12/30/2016: Opacity left perihilar area probably suggestive of pneumonitis. Please further specify known or suspected Etiology: [ ] Aspiration Pneumonia [ x] Gram Negative Pneumonia , suspected [ ] Gram Positive Pneumonia [ ] Pseudomonas Pneumonia [ ] MRSA - related Pneumonia [ ] Viral Pneumonia [ ] Candidal Pneumonia [ ] Other: [ ] Unable to determine Present on Admission: [ x] Yes (Y) [ ] Clinically undeterminable (W) [ ] No (N) Please also document response in your Progress Notes and/or Discharge Summary and indicate if the condition was present on admission. MTDD
--- NOTE | 2017-01-03 14:04 | Progress Note ---
Assessment and Plan Assessment and plan: Bilateral PE - Continue heparin drip and will change to Eliquis at discharge - Hematology oncology/consulted for hypercoagulable workup and recommendation for the duration of fond cognition left LL lung mass - Patient has a mass on previous imaging, will follow with Dr. Carr as an outpatient - Patient doesn't need biopsy at this time Acute respiratory failure with hypoxemia - likely from acute PE and exacerbation of asthma - Neb Tx iv Solumedrol and breathing tx - We will otoniel steroids Asthma exacerbation - cont periodic nebulizer breathing treatment along with O2 Low back pain associated with a spinal disorder other than radiculopathy or spinal stenosis - Patient had recent back surgery - will d/c morphine and start her on Percocet Steroid induced hyperglycemia - will reduce the dose of steroid - will place on SSI Leukocytosis - steroid induced - will cont to monitor DVT prophylaxis - On heparin drip History Interval history: Patient was seen and evaluated this morning, she is complaining shortness of breath. Vital signs are stable. Hospitalist Physical - Physical exam Narrative exam: Not in cardiopulmonary distress. The patient is obese. Vital signs as documented. Head exam is unremarkable. No scleral icterus . Neck is without jugular venous distension, thyromegaly, or carotid bruits. Lungs are clear to auscultation. Cardiac exam reveals regular rate and Rhythm. First and second heart sounds normal. No murmurs, rubs or gallops. Abdominal exam reveals normal bowel sounds, no masses, no organomegaly and no aortic enlargement. Extremities are nonedematous and both femoral and pedal pulses are normal. ASSOCIATE PRODUCER: Alert and oriented 3. No focal weakness. - Constitutional Vitals: Temp Pulse Resp BP Pulse Ox 98.3 F 56 L 18 114/72 98 01/03/17 08:11 01/03/17 08:11 01/03/17 08:11 01/03/17 08:11 01/03/17 08:11 General appearance: Present: no acute distress, well-nourished Results - Labs CBC & Chem 7: 01/02/17 07:54 01/03/17 06:09 Labs: Laboratory Last Values WBC 20.1 K/mm3 (4.5-11.0) H 01/02/17 01:20 RBC 3.72 M/mm3 (3.65-5.03) 01/02/17 01:20 Hgb 11.5 gm/dl (10.1-14.3) 01/02/17 07:54 Hct 36.1 % (30.3-42.9) 01/02/17 07:54 MCV 94 fl (79-97) 01/02/17 01:20 MCH 31 pg (28-32) 01/02/17 01:20 MCHC 33 % (30-34) 01/02/17 01:20 RDW 14.9 % (13.2-15.2) 01/02/17 01:20 Plt Count 300 K/mm3 (140-440) 01/02/17 07:54 Lymph % (Auto) 35.9 % (13.4-35.0) H 12/30/16 20:38 [place] % (Auto) 8.7 % (0.0-7.3) H 12/30/16 20:38 Eos % (Auto) 0.3 % (0.0-4.3) 12/30/16 20:38 Baso % (Auto) 0.2 % (0.0-1.8) 12/30/16 20:38 Lymph # 4.2 K/mm3 (1.2-5.4) 12/30/16 20:38 [place] # 1.0 K/mm3 (0.0-0.8) H 12/30/16 20:38 Eos # 0.0 K/mm3 (0.0-0.4) 12/30/16 20:38 Baso # 0.0 K/mm3 (0.0-0.1) 12/30/16 20:38 Seg Neutrophils % 54.9 % (40.0-70.0) 12/30/16 20:38 Seg Neutrophils # 6.4 K/mm3 (1.8-7.7) 12/30/16 20:38 PT 13.9 Sec. (12.2-14.9) 12/31/16 13:43 INR 1.08 (0.87-1.13) 12/31/16 13:43 APTT 24.8 Sec. (24.2-36.6) 12/31/16 13:43 Heparin Anti-Xa Level 0.62 U.I./ml (0.3-0.7) 01/02/17 19:45 Sodium 141 mmol/L (137-145) 01/03/17 06:09 Potassium 4.6 mmol/L (3.6-5.0) 01/03/17 06:09 Chloride 106.5 mmol/L (98-107) 01/03/17 06:09 Carbon Dioxide 21 mmol/L (22-30) L 01/03/17 06:09 Anion Gap 18 mmol/L 01/03/17 06:09 BUN 11 mg/dL (7-17) 01/03/17 06:09 Creatinine 0.5 mg/dL (0.7-1.2) L 01/03/17 06:09 Estimated GFR > 60 ml/min 01/03/17 06:09 BUN/Creatinine Ratio 22.00 % 01/03/17 06:09 Glucose 143 mg/dL (65-100) H 01/03/17 06:09 POC Glucose 116 (70-105) H 01/03/17 11:32 Hemoglobin A1c 5.9 % (4-6) 12/30/16 20:38 Calcium 8.6 mg/dL (8.4-10.2) 01/03/17 06:09 Total Bilirubin < 0.20 mg/dL (0.1-1.2) 12/30/16 20:45 AST 11 units/L (5-40) 12/30/16 20:45 ALT 15 units/L (7-56) 12/30/16 20:45 Alkaline Phosphatase 66 units/L (35-129) 12/30/16 20:45 Total Protein 7.2 g/dL (6.3-8.2) 12/30/16 20:45 Albumin 3.8 g/dL (3.9-5) L 12/30/16 20:45 Albumin/Globulin Ratio 1.1 % 12/30/16 20:45
[2017-01-03] MEDS: PERCOCET 5/325 PO PRN ×2 (14:52→20:31)
[2017-01-03] MEDS: HEPARIN/ 0.45% NACL-25,000 UNIT/500 ML 25,000 UNIT/500 ML BAG IV SCH (14:53)
[2017-01-03] MEDS: LEVAQUIN PO SCH (21:43)
--- NOTE | 2017-01-03 23:06 | Consultation ---
History of Present Illness - Reason for Consult Consult date: 01/03/17 B/L PE Requesting physician: RUFINA ROLLE - History of Present Illness Thank you for this consult, patient see/examined, record reviewed, case d/w patient in detail.Dr VALVERDE was consulted, but asked I see this patient instead.As per patients acout, she started having chest pain/SOBx3w, but thought it was her asthma. She had lumber surgery about 3m ago. She denies any family or personal hx of hypercoag, or any propagating factor, other than the remote back surgery.Doppler US neg for DVT.She has been on IV heparin since monday.I have given her the standard tx plan, and w/up plans.please see orders/rec. She is also on Iv ABX, probably not needed, as there is no sign of infection. CTA showed a left lung mass, and a calcified hilar mass.She will need to have these evaluated at some point to r/o any association with this PE.She is a non smoker. Past History Past Medical History: arthritis, other (asthma, chronic pain) Past Surgical History: Other (back surgery) Social history: no significant social history, lives with family Family history: hypertension Medications and Allergies Allergies Allergy/AdvReac Type Severity Reaction Status Date / Time Penicillins Allergy Hives Unverified 12/04/13 09:58 [email or web address] AdvReac Unknown Verified 12/30/16 14:00 Home Medications Medication Instructions Recorded Confirmed Last Taken Type Percocet 5/325 mg 2 PO Q4-6H PRN 12/31/16 Unknown History Robaxin TAB 750 PO Q12HR 12/31/16 Unknown History Active Meds: Active Medications Acetaminophen (Tylenol) 650 mg PO Q4H PRN PRN Reason: Pain MILD(1-3)/Fever >100.5/RICK Acetaminophen/Hydrocodone Bitart ([place] 5/325) 1 each PO Q6H PRN PRN Reason: Pain, Moderate (4-6) Last Admin: 01/02/17 21:18 Dose: 1 each Albuterol (Proventil) 2.5 mg IH Q6HRT PRN PRN Reason: Bronchospasm Arformoterol Tartrate (Brovana Nebu) 15 mcg IH Q12HRT RICKEY Last Admin: 01/03/17 21:12 Dose: 15 mcg Bisacodyl (Dulcolax) 10 mg [place] QDAY PRN PRN Reason: Constipation unrelieved by MOM Budesonide (Pulmicort) 0.5 mg IH Q12HRT [facility] Last Admin: 01/03/17 21:12 Dose: 0.5 mg Docusate Sodium (Colace) 100 mg PO BID [facility] Last Admin: 01/03/17 21:43 Dose: 100 mg Sodium Chloride (Nacl 0.9% 1000 Ml) 1,000 mls @ 75 mls/hr IV DIRECT RICKEY Last Admin: 01/03/17 20:32 Dose: 75 mls/hr Heparin Sodium/Sodium Chloride (Heparin/ 0.45% Nacl-25,000 Unit/500 Ml) 25,000 unit in 500 mls @ 29 mls/hr IV TITR RICKEY; 1,450 UNITS/HR PRN Reason: Protocol Last Titration: 01/03/17 20:51 Dose: 900 units/hr, 18 mls/hr Insulin Human Regular (Novolin R) 0 units SUB-Q ACHS RICKEY PRN Reason: Protocol Last Admin: 01/03/17 22:01 Dose: Not Given Levofloxacin (Levaquin) 500 mg PO Q24H [facility] Last Admin: 01/03/17 21:43 Dose: 500 mg Magnesium Hydroxide (Milk Of Magnesia) 30 ml PO Q4H PRN PRN Reason: Constipation Last Admin: 01/03/17 09:53 Dose: 30 ml Methylprednisolone Sodium Succinate (Solu-Medrol) 40 mg IV Q24HR [facility] Last Admin: 01/03/17 09:19 Dose: 40 mg Ondansetron HCl (Zofran) 4 mg IV Q8H PRN PRN Reason: N/V unrelieved by Reglan Oxycodone/Acetaminophen (Percocet 5/325) 2 tab PO Q6H PRN PRN Reason: Pain, Moderate (4-6) Last Admin: 01/03/17 20:31 Dose: 2 tab Review of Systems Constitutional: chronic pain Breasts: deferred Cardiovascular: chest pain Musculoskeletal: low back pain Exam - Constitutional Vitals: Temp Pulse Resp BP Pulse Ox 98.7 F 72 15 134/73 100 01/03/17 21:15 01/03/17 21:23 01/03/17 21:23 01/03/17 21:15 01/03/17 21:15 General appearance: Present: mild distress, well-nourished - EENT Eyes: Present: PERRL ENT: hearing intact, clear oral mucosa - Neck Neck: Present: supple, normal ROM - Respiratory Respiratory effort: normal Respiratory: bilateral: CTA - Cardiovascular Heart Sounds: Present: S1 & S2. Absent: rub, click - Extremities Extremities: pulses symmetrical, No edema Peripheral Pulses: within normal limits - Abdominal General gastrointestinal: Present: soft, non-tender, non-distended, normal bowel sounds Female genitourinary: Present: deferred - Rectal Rectal Exam: deferred - Integumentary Integumentary: Present: clear, warm, dry - Musculoskeletal Musculoskeletal: gait normal, strength equal bilaterally - Psychiatric Psychiatric: appropriate mood/affect, intact judgment & insight - Neurologic Neurologic: CNII-XII intact, moves all extremities Results - Labs CBC & Chem 7: 01/02/17 07:54 01/03/17 06:09 Labs: Abnormal lab results 01/03/17 01/03/17 01/03/17 Range/Units 05:40 06:09 11:32 Carbon Dioxide 21 L (22-30) mmol/L Creatinine 0.5 L (0.7-1.2) mg/dL Glucose 143 H (65-100) mg/dL POC Glucose 134 H 116 H (70-105) 01/03/17 01/03/17 Range/Units 15:57 21:47 Carbon Dioxide (22-30) mmol/L Creatinine (0.7-1.2) mg/dL Glucose (65-100) mg/dL POC Glucose 110 H 149 H (70-105) Assessment and Plan - Patient Problems (1) Shortness of breath Current Visit: Yes Status: Acute Plan to address problem: due to PE. (2) Pleuritic chest pain Current Visit: Yes Status: Acute Plan to address problem: due to the PE. (3) Pulmonary embolism Current Visit: Yes Status: Acute Qualifiers: Pulmonary embolism type: P Chronicity: C Acute cor pulmonale presence: A Plan to address problem: full anticoagulation, and w/up.
[2017-01-04 00:33] LABS: INR 1.04 (0.87-1.13)
[2017-01-04] MEDS: PERCOCET 5/325 PO PRN ×2 (02:16→15:25)
[2017-01-04 06:21] LABS: Basophils % (Auto) 0.1 % (0.0-1.8); Eosinophils % (Auto) 0.1 % (0.0-4.3); Hematocrit 38.2 % (30.3-42.9); Hemoglobin 12.7 gm/dl (10.1-14.3); Mean Corpuscular HGB Conc 33 % (30-34); Mean Corpuscular Hemoglobin 31 pg (28-32); Mean Corpuscular Volume 95 fl (79-97); Platelet Count 277 K/mm3 (140-440); Red Blood Count 4.04 M/mm3 (3.65-5.03); Red Cell Distribution Width 15.3 % (13.2-15.2); White Blood Count 14.6 K/mm3 (4.5-11.0)
[2017-01-04 06:40] LABS: Anion Gap 19 mmol/L; Blood Urea Nitrogen 11 mg/dL (7-17); Calcium 8.4 mg/dL (8.4-10.2); Carbon Dioxide 24 mmol/L (22-30); Chloride 104.6 mmol/L (98-107); Glucose 101 mg/dL (65-100); Potassium 4.1 mmol/L (3.6-5.0); Sodium 143 mmol/L (137-145)
[2017-01-04] MEDS: NORCO 5/325 PO PRN (08:02)
--- NOTE | 2017-01-04 08:10 | Progress Note ---
Assessment and Plan 46 y/o female with PE and left lower lobe mass No new recs for today. Will re-iterate the points listed below. The patient does not need to have the left lower lobe lesion biopsied nor the hilar adenopathy. She has been followed by my partner for several years with these same lesions. They have not increased in size and have calcium in them, significantly lowering the changes of malignancy. Please, if any questions regarding this call myself or the office for further details but biopsy is not needed at this point. 1. Reviewed old records and films. Most recent CT prior to several days ago was 2013. Does not appear to have changed. Stable. No need for biopsy at this point. Spoke with [facility], would figure out what insurance covers and start patient on oral anticoagulation 2. Continue home medication regimen for asthma at discharge: . 3. Will need steroid taper at discharge. 40x3, 20x3, 10x3 then stop 4. Needs heme consult for hypercoag work up and outpatient follow up to help determine duration of therapy. Subjective Date of service: 01/04/17 Principal diagnosis: dyspnea, asthma exacerbation, hypoxemia, recent back surgery Interval history: heme consulted on yesterday. Reviewed their note. Objective Vital Signs - 12hr 01/03/17 01/03/17 01/03/17 21:12 21:13 21:15 Temperature 98.7 F Pulse Rate 60 Pulse Rate [ 64 Posterior Bilateral Throughout] Respiratory 18 Rate Respiratory 16 Rate [Posterior Bilateral Throughout] Blood Pressure 134/73 O2 Sat by Pulse 97 100 Oximetry 01/03/17 01/04/17 21:23 02:15 Temperature Pulse Rate 70 Pulse Rate [ 72 Posterior Bilateral Throughout] Respiratory 18 Rate Respiratory 15 Rate [Posterior Bilateral Throughout] Blood Pressure O2 Sat by Pulse 100 Oximetry Constitutional: no acute distress, alert, appears uncomfortable ENT: oropharynx moist Neck: supple, no lymphadenopathy Effort: mildly labored Ascultation: Bilateral: clear, diminished breath sounds, wheezes, rhonchi ( sporadic) Percussion: Bilateral: not dull Tactile fremitus: Bilateral: normal Cardiovascular: regular rate and rhythm Gastrointestinal: normoactive bowel sounds, soft, non-tender, non-distended Integumentary: normal Extremities: no cyanosis Neurologic: normal mental status, non-focal exam Psychiatric: mood appropriate, affect normal CBC and BMP: 01/04/17 05:56 01/04/17 05:56 ABG, PT/INR, D-dimer: PT/INR, D-dimer PT 13.5 Sec. (12.2-14.9) 01/03/17 23:53 INR 1.04 (0.87-1.13) 01/03/17 23:53 Abnormal lab findings: Abnormal Labs 12/30/16 12/30/16 12/30/16 20:38 20:44 20:45 WBC 11.7 H RDW Lymph % (Auto) 35.9 H [place] % (Auto) 8.7 H [place] # 1.0 H Seg Neutrophils # APTT 23.0 L Heparin Anti-Xa Level Potassium 3.4 L Carbon Dioxide 20 L Creatinine Glucose 114 H POC Glucose Albumin 3.8 L 12/31/16 12/31/16 12/31/16 02:03 05:11 06:04 WBC RDW Lymph % (Auto) [place] % (Auto) [place] # Seg Neutrophils # APTT Heparin Anti-Xa Level Potassium Carbon Dioxide 21 L Creatinine 0.6 L Glucose 160 H POC Glucose 138 H 156 H Albumin 12/31/16 12/31/16 12/31/16 12:27 16:21 20:09 WBC RDW Lymph % (Auto) [place] % (Auto) [place] # Seg Neutrophils # APTT Heparin Anti-Xa Level 1.45 H Potassium Carbon Dioxide Creatinine Glucose POC Glucose 140 H 166 H Albumin 12/31/16 01/01/17 01/01/17 21:57 05:47 06:39 WBC RDW Lymph % (Auto) [place] % (Auto) [place] # Seg Neutrophils # APTT Heparin Anti-Xa Level 1.19 H Potassium Carbon Dioxide Creatinine Glucose POC Glucose 118 H 146 H Albumin 01/01/17 01/01/17 01/01/17 12:06 17:14 21:24 WBC RDW Lymph % (Auto) [place] % (Auto) [place] # Seg Neutrophils # APTT Heparin Anti-Xa Level Potassium Carbon Dioxide Creatinine Glucose POC Glucose 181 H 168 H 182 H Albumin 01/02/17 01/02/17 01/02/17 01:20 06:38 12:33 WBC 20.1 H RDW Lymph % (Auto) [place] % (Auto) [place] # Seg Neutrophils # APTT Heparin Anti-Xa Level Potassium Carbon Dioxide Creatinine Glucose POC Glucose 144 H 209 H Albumin 01/02/17 01/02/1717 16:37 21:25 05:40 WBC RDW Lymph % (Auto) [place] % (Auto) [place] # Seg Neutrophils # APTT Heparin Anti-Xa Level Potassium Carbon Dioxide Creatinine Glucose POC Glucose 223 H 165 H 134 H Albumin 01/03/17 01/03/17 01/03/17 06:09 11:32 15:57 WBC RDW Lymph % (Auto) [place] % (Auto) [place] # Seg Neutrophils # APTT Heparin Anti-Xa Level Potassium Carbon Dioxide 21 L Creatinine 0.5 L Glucose 143 H POC Glucose 116 H 110 H Albumin 01/03/17 01/04/17 01/04/17 21:47 05:56 05:56 WBC 14.6 H RDW 15.3 H Lymph % (Auto) [place] % (Auto) [place] # 1.1 H Seg Neutrophils # 9.8 H APTT Heparin Anti-Xa Level Potassium Carbon Dioxide Creatinine 0.5 L Glucose 101 H POC Glucose 149 H Albumin 01/04/17 06:24 WBC RDW Lymph % (Auto) [place] % (Auto) [place] # Seg Neutrophils # APTT Heparin Anti-Xa Level Potassium Carbon Dioxide Creatinine Glucose POC Glucose 106 H Albumin
[2017-01-04] MEDS: PULMICORT IH SCH ×2 (08:30→20:14)
[2017-01-04] MEDS: BROVANA NEBU IH SCH ×2 (08:30→20:14)
--- NOTE | 2017-01-04 10:17 | Discharge Summary ---
Providers - Providers Date of Admission: 12/30/16 20:12 Date of discharge: 01/04/17 Attending physician: RUFINA ROLLE MD 12/30/16 14:01 Consult to Physician [CONS] Urgent Consulting Provider: JARRET CARR Reason For Exam: ASTHMA EXACERBATION Place consult to:: DR. CARR Notified:: YES Phone number called:: [phone] Was contact made?: Yes If yes, spoke with:: JAKOB ROBERT @ OFFICE AND DR. CARR Time called:: 13:52 01/03/17 13:52 Consult to Physician [CONS] Routine Consulting Provider: JANET BAUER Reason For Exam: bilateral PE Place consult to:: Hem/Onc Notified:: DR. Marianne Sánchez Phone number called:: [phone] Was contact made?: Yes If yes, spoke with:: YULIA Time called:: 14:20 Comment:: hypercoagulable w/u 01/03/17 16:37 Consult to Physician [CONS] Routine Consulting Provider: SPRING CHACON Reason For Exam: Bilateral PE Place consult to:: Hemo/onc Notified:: DR CHACON Phone number called:: [phone] Was contact made?: Yes If yes, spoke with:: DR CHACON Time called:: 16:30 Primary care physician: SHAKILA NAIR Hospitalization Reason for admission: Bilateral PE, respiratory failure Pertinent studies: CTA bilateral PE, 3.9 x 2.5 cm left lower lung mass Echo normal ejection fraction, no diastolic dysfunction, normal right ventricular strain Hospital course: 46 year old AAF with HX of Asthma not responding to Outpatient treatment.Sent from Dr Carr's office as a direct admit .Also to rule out PE bcoz of recent travel and chest pain rt side.Patient was desaturating on walking in Dr Carr' s office.No fever or chills.Cough productive of mucoid sputum. Patient was admitted echo and CTA was done CTA showed bilateral PE, left lower lung mass. Patient was treated with heparin as inpatient and was discharged with eliquis. Pulmonary consult appreciated. The left lower lung mass was there before and had a previous CT scan. Dr. Carr is following her as an outpatient and if needed biopsy can be done there. She was treated for asthma with appropriate asthma treatment. Patient's medications were reviewed as a time of discharge and updated. Patient's questions and concerns were addressed at the bedside. Patient will follow with her cotton cleaner Dr. Carr. Patient was hemodynamically stable at the time of discharge. Disposition: DC-01 TO HOME OR SELFCARE Time spent for discharge: 31 minutes - Discharge Diagnoses (1) Acute bronchitis Status: Acute Qualifiers: Bronchitis organism: B (2) Acute respiratory failure with hypoxemia Status: Acute (3) Asthma exacerbation Status: Acute (4) Pulmonary embolism Status: Acute Qualifiers: Pulmonary embolism type: P Chronicity: C Acute cor pulmonale presence: A Core Measure Documentation - Palliative Care Palliative Care/ Comfort Measures: Not Applicable - Core Measures Any of the following diagnoses?: DVT/PE - VTE Discharge Requirements Deep Vein Thrombosis/Pulmonary Embolism Present on Admission: Yes Has pt received <5 days of overlap therapy or INR<2.0: No Anticoagulant overlap therapy prescribed at discharge: No Contraindication No Overlap Therapy order at DC: Not Indicated Exam - Physical Exam Narrative exam: Not in cardiopulmonary distress. The patient is obese. Vital signs as documented. Head exam is unremarkable. No scleral icterus . Neck is without jugular venous distension, thyromegaly, or carotid bruits. Lungs are clear to auscultation. Cardiac exam reveals regular rate and Rhythm. First and second heart sounds normal. No murmurs, rubs or gallops. Abdominal exam reveals normal bowel sounds, no masses, no organomegaly and no aortic enlargement. Extremities are nonedematous and both femoral and pedal pulses are normal. COPYRIGHT MANAGER: Alert and oriented 3. No focal weakness. - Constitutional Vitals: Temp Pulse Resp BP Pulse Ox 98.3 F 66 18 119/74 100 01/04/17 08:00 01/04/17 08:31 01/04/17 08:31 01/04/17 08:00 01/04/17 08:32 Plan Activity: no restrictions Weight Bearing Status: Full Weight Bearing Diet: low fat, low cholesterol Follow up with: SHAKILA NAIR MD [Primary Care Provider] - 7 Days JARRET CARR MD [Staff Physician] - 14 Days SPRING CHACON DO [Staff Physician] - 10 Days Prescriptions: ALBUTEROL Inhaler [ProAir HFA Inhaler] 1 puff IH Q4H PRN #1 can PRN Reason: Shortness Of Breath Apixaban [Eliquis] 5 mg PO BID #74 tablet Levofloxacin [Levaquin TAB] 500 mg PO QDAY #5 tablet Prednisone [predniSONE 10 mg (6-Day Pack, 21 Tabs)] 10 mg PO .TAPER #1 tab.ds.pk
[2017-01-04] MEDS: COLACE PO SCH (11:23)
[2017-01-04 16:25] VITALS: BP 126/83
[2017-01-05 23:52] LABS: PTT-LA 50 sec (<=40)
[2017-01-06 14:54] LABS: Protein S, Free 97 % normal (50-147); Protein S, Total 96 % (70-140)
== END 2017-01-04 17:35 | disposition home or self-care (01) | DRG 175 ==
LOC: UNDOADMIN 13:56 → 3A 13:56
PROVIDERS: ADMIT Internal Medicine; ATTEND Internal Medicine
DX: I26.99 Other pulmonary embolism without acute cor pulmonale (principal); J96.01 Acute respiratory failure with hypoxia; J18.9 Pneumonia, unspecified organism; J45.901 Unspecified asthma with (acute) exacerbation; M19.90 Unspecified osteoarthritis, unspecified site; G47.33 Obstructive sleep apnea (adult) (pediatric); J20.9 Acute bronchitis, unspecified; G89.29 Other chronic pain; M54.5 Low back pain; M53.9 Dorsopathy, unspecified; E66.9 Obesity, unspecified; R91.8 Other nonspecific abnormal finding of lung field; R73.9 Hyperglycemia, unspecified; T38.0X5A Adverse effect of glucocorticoids and synthetic analogues, initial encounter; D72.829 Elevated white blood cell count, unspecified; Z82.49 Family history of ischemic heart disease and other diseases of the circulatory system; Z88.0 Allergy status to penicillin; Z88.8 Allergy status to other drugs, medicaments and biological substances; Z79.899 Other long term (current) drug therapy; Z68.39 Body mass index [BMI] 39.0-39.9, adult; Y92.89 Other specified places as the place of occurrence of the external cause
CPT/HCPCS: 36415; 71010; 71275; 80048; 80053; 82962; 83036; 83516; 85014; 85018; 85025; 85027; 85049; 85220; 85301; 85305; 85307; 85520; 85610; 85613; 85652; 85730; 86140; 93306; 93970; 94640; 94660; 94760; J1644; J1815; J1956; J2270; J2920; J7030; Q9967

== ENCOUNTER 2017-09-14 08:17 | Outpatient (CLI) | payer MEDICARE ==
--- NOTE | 2017-09-18 10:01 | PET Report ---
PET SB TO MT INITIAL: HISTORY: R91.8. TECHNIQUE: 13.6 millicuries F-18 FDG was administered intravenously. Noncontrast CT images and PET images were obtained from the skull base to the proximal thighs. Fused images were reviewed on a workstation. The patient's blood glucose level measured 115. COMPARISON: Multiple CT chest examinations dating back to the CT biopsy lung dated 01/26/10. FINDINGS: BRAIN: physiologic FDG uptake in the imaged brain. NECK: physiologic FDG uptake. MEDIASTINUM: physiologic FDG uptake. Calcified left hilar lymph nodes are unchanged. LUNGS: A partially calcified lingular mass measures 4.3 x 2.9 cm. Max SUV along the superior border this lesion measures up to 5.5. This mass has decreased in size from 6.1 x 3.[address] chest dated 03/30/10. The remaining lung parenchyma is within normal limits.. PLEURA/PERICARDIUM: physiologic FDG uptake. THORACIC LYMPH NODES: physiologic FDG uptake. HEPATOBILIARY: physiologic FDG uptake. Mean liver SUV measures 4.4. PANCREAS: physiologic FDG uptake. SPLEEN: physiologic FDG uptake. ADRENAL GLANDS: physiologic FDG uptake. KIDNEYS/RENAL COLLECTING SYSTEMS: physiologic FDG uptake. BOWEL/MESENTERY: physiologic FDG uptake. PELVIC VISCERA: physiologic FDG uptake. Mild uterine fibroid disease is noted ABDOMINAL/PELVIC LYMPH NODES: physiologic FDG uptake. MUSCULOSKELETAL: physiologic FDG uptake. Lumbar fusion changes are noted. No suspicious bony lesion is detected. IMPRESSION: There is a complex, partially calcified lingular mass measuring 4.3 x 2.9 cm in axial plane and demonstrates a mildly elevated standard uptake value of 5.5. Please note this mass has decreased in size and complexity since 2009. This lesion was percutaneously biopsied by myself on 01/26/10 but I'm unable to access the report on [employer]. I suspect this is related to chronic granulomatous disease.
== END 2017-09-14 08:18 | disposition home or self-care (01) ==
LOC: PET 08:17
PROVIDERS: ATTEND Internal Medicine Hematology & Oncology
DX: R91.8 Other nonspecific abnormal finding of lung field (principal); D25.9 Leiomyoma of uterus, unspecified; Z79.899 Other long term (current) drug therapy; M43.26 Fusion of spine, lumbar region
CPT/HCPCS: 78815; 82962; A9552